=== PATIENT | female | born 1985 | race Caucasian/White ===

== ENCOUNTER → 2018-12-11 09:35 | Outpatient (POV) | payer OTHER, SELFPAY ==
[2018-12-11 09:44] VITALS: BP 134/74; PULSE 97; RESP 18; O2SAT 98
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
== END ==
PROVIDERS: PCP Family Medicine; Visit Provider Clinical Nurse Specialist Family Health
DX: M54.2 Cervicalgia (principal)
CPT/HCPCS: 99202

== ENCOUNTER → 2019-01-14 10:40 | Outpatient (POV) | payer OTHER, SELFPAY ==
[2019-01-14 11:10] VITALS: BP 140/85; PULSE 88; RESP 18; O2SAT 98; BMI 23.9
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
== END ==
PROVIDERS: PCP Family Medicine; Visit Provider Clinical Nurse Specialist Family Health
DX: M50.10 Cervical disc disorder with radiculopathy, unspecified cervical region (principal)
CPT/HCPCS: 99212